=== PATIENT | female | born 1990 | race Caucasian/White ===

== ENCOUNTER 2017-04-24 07:30 | Inpatient (IN) ==
[2017-04-24] MEDS ORDERED: miSOPROStol 25 MCG TABLET PO PRN (09:19)
[2017-04-24] MEDS ORDERED: *HR* Nalbuphine 20 MG/ML AMPUL IVP PRN (09:20)
[2017-04-24] MEDS ORDERED: Naloxone 0.4 MG/ML INJ IVP PRN (09:20)
[2017-04-24] MEDS ORDERED: Famotidine 20 MG/2 ML VIAL IVP PRN (09:20)
[2017-04-24] MEDS ORDERED: Ringers Solution, Lactated 1,000 ML IVC SCH (09:30)
[2017-04-24 09:37] LABS: Amphetamine Screen,Urine Negative ng/mL (Cutoff=1000); Barbiturate Screen,Urine Negative ng/mL (Cutoff=200); Benzodiazepines Screen,Urine Negative ng/mL (Cutoff=200); Cannabinoid Screen,Urine Negative ng/mL (Cutoff = 50); Cocaine Screen,Urine Negative ng/mL (Cutoff= 300); Opiate Screen,Urine Negative ng/mL (Cutoff=300); Phencyclidine Screen,Urine Negative ng/mL (Cutoff=25)
[2017-04-24 09:40] LABS: Basophils % 0.3 %; Eosinophils # 0.1 K/mcL (0.0-0.6); Eosinophils % 0.9 %; Hematocrit 34.9 % (35.3-44.9); Hemoglobin 11.4 g/dL (11.5-15.4); Immature Granulocytes % 0.5 % (0-4); Lymphocytes # 2.4 K/mcL (0.6-4.6); Lymphocytes % 19.2 %; Mean Corpuscular HGB Conc 32.7 g/dL (31.6-35.5); Mean Corpuscular Hemoglobin 28.7 pg (28.0-33.3); Mean Corpuscular Volume 87.9 fL (83.0-100.0); Mean Platelet Volume 12.3 fL (9.4-12.4); Monocytes # 1.2 K/mcL (0.0-1.3); Monocytes % 9.8 %; Neutrophils # 8.5 K/mcL (1.6-8.9); Platelet Count 232 K/mcL (140-400); Red Blood Count 3.97 M/mcL (3.82-4.97); Segmented Neutrophils % 69.3 %
--- NOTE | 2017-04-24 09:49 | OB/GYN History & Physical ---
Date of Encounter: 04/24/17 Time of Encounter: 09:44 Assessment and Plan (1) 40 weeks gestation of Current visit: Yes Status: Acute at 40w0d her for IOL CBC, UDS LR 125 ml/hr monitoring - baseline 130 with variability and accels - category I Cervix /-2 per RN Cytotec PO Expect (2) Gestational diabetes mellitus (GDM) Current visit: Yes Status: Acute Diet controlled Check blood glucose now Qualifiers: Gestational diabetes mellitus control: diet-controlled Trimester: third trimester Qualified Code(s): O24.410 - Gestational diabetes mellitus in , diet controlled (3) Tobacco use Current visit: Yes Status: Acute History of Present Illness Chief complaint: IOL HPI: Ms. Darling is a 26 year old female at 40w0d presenting to L&D for IOL. She reports good movement and feels irregular contractions. She denies LOF, vaginal bleeding or vaginal discharge. This has been complicated by diet controlled GDM and tobacco use. She denies other symptoms. Denies fevers, chills, headaches, blurry vision, chest pain, dyspnea, abdominal pain, dysuria, or lower extremity edema. Blood type A negative - Rhogam given in office on 02/01/17 GBD negative Rubella Immune Varicella Immune All other serologies negative Past Med Surg Social Fam HX - Past Medical History Medical history: no medical history Psychiatric history: no psych history - Social History Smoking Status: Current every day smoker Packs per day: 1 Smokeless Tobacco Status: No Alcohol use: none Drug use: marijuana - Family History Grandmother Living Status: Hx Family Cancer: Yes Obstetrical History - Pregnancies : 1 Para: 0 Term: 0 : 0 Ab's: 0 Livin - History/Complications History/Complications: Diet controlled GDM, Tobacco use during Medications and Allergies No Known Home Drugs 04/24/17 [History] 3 Allergy/AdvReac Type Severity Reaction Status Date / Time No Known Allergies Allergy Verified 04/24/17 08:57 Review of System OB All systems PM: reviewed and no additional remarkable complaints except as stated Exam - Constitutional Constitutional: well developed, well nourished, no acute distress, average body habitus - HEENT HEENT: Normocephaly, Mucus Membranes Moist - Lungs Respiratory exam: CTAB - Cardiovascular Cardiovascular exam: RRR, +S1, +S2 - Abdomen Abdomen: Present: bowel sounds normal - Extremities Extremities exam: normal capillary refill, normal inspection, pedal edema (mild bilaterally), radial pulses palpable and symmetrical - Vulva Vulva: bilateral: normal - Vagina Vagina: Present: normal moisture - Cervix Dilation: 1 (per RN) Effacement: 70 Station: -2 - Uterus Uterus exam: Present: normal size, normal contour - Anus/Rectum Anus/Rectum: Present: normal perianal skin - Comments Comments: FHT baseline 130 with variability and accels - category I Results Result Diagrams: 04/24/17 08:55 Abnormal lab results WBC 12.3 K/mcL (4.3-11.1) H 04/24/17 08:55 Hgb 11.4 g/dL (11.5-15.4) L 12 08:55 Hct 34.9 % (35.3-44.9) L 04/24/17 08:55 All other labs normal. - VTE Reasons for not Prescribing Prophylaxis: Treatment not Indicated - Low risk for VTE
--- NOTE | 2017-04-24 11:28 | Anesthesia Evaluation PreOp ---
Date of Encounter: 04/24/17 Time of Encounter: 11:07 - Past History Planned Operation: vaginal del, induction Cardiac History: Denies any Significant Hx Pulmonary History: Denies Any Significant HX BURR BENCH OPERATOR History: Denies Any Significant HX Other Medical History: Denies Any Significant HX Anesthesia History: No Prior Anesthetic Complications : Yes (term) Alcohol Use: none Drug use: marijuana Medications and Allergies No Known Home Drugs 04/24/17 [History] 3 Allergy/AdvReac Type Severity Reaction Status Date / Time No Known Allergies Allergy Verified 04/24/17 08:57 Anesthesia Results - Labs 04/24/17 08:55 04/24/17 08:55 Anesthesia Exam - HEENT Pupil (Motor): Pupils equal Mallampati: II Teeth: Normal Oral Opening: Greater than 3 - BURR BENCH OPERATOR LOC: Oriented BURR BENCH OPERATOR Motor: Normal RUE, Normal LUE, Normal RLE, Normal LLE, Normal Face BURR BENCH OPERATOR Sensory: Normal: RUE, LUE, RLE, LLE, Face - Cardiac Rhythm: Regular Murmur: None - Pulmonary Breath Sounds: bilateral Clear Respiratory Effort: Symmetrical Anesthesia Assess/Plan ASA Score: 2 Modified [place] Scale for Level of Consciousness: Cooperative, oriented, and tranquil Anesthetic Plan: General, Regional Monitoring Plan: Standard Monitors
--- NOTE | 2017-04-24 13:09 | OB Labor Progress Note ---
Date of Encounter: 04/24/17
--- NOTE | 2017-04-24 14:32 | OB Labor Progress Note ---
Date of Encounter: 04/24/17 Time of Encounter: 14:30 Labor Progress Note - Subjective Subjective: Patient resting in bed. Discussed POC with patient. Patient denies any questions or concerns. - Cervix Cervix: 2.5/70/-1 - Heart Tones Heart Tones: 130 bpm moderate variability +15x15 accels no decels noted. Cat. 1 tracing - [place]: irregular - Interventions Interventions: SVE - Plan Plan: Will start Pitocin for labor augmentation.
[2017-04-24] MEDS ORDERED: Oxytocin 20 units/ LR 1000 mL 20 UNIT/1,000 ML BAG IVC SCH (14:45)
[2017-04-24] MEDS ORDERED: Epidural Premix (fent/bupiv) 110 ML EP ONE (23:32)
--- NOTE | 2017-04-25 00:10 | Anesthesia Procedures ---
Date of Encounter: 04/24/17 Time of Encounter: 23:57 Procedures: Anesthesia - Epidural/Spinal Patient ID/Chart reviewed: Yes Patient examined: Yes OB Eval: Gestational age: term OB Eval: : 1 OB Eval: Contractions: Non-stressed pattern Consent Obtained: Yes Supplemental Oxygen: None/Room Air Site Prep: Aseptic Technique, Sterile prep and drape, 0.5% Chlorhexidine/Alcohol Patient position: upright Local Anesthetic: Lidocaine 1% Amount of Local Anesthetic used: 2 Touhy Needle Gauge: 18 Touhy Needle Depth (cm): 5 Catheter Depth at Skin (cm): 9 Test Dose (1.5% Lido + Epi): Volume given (mls): 3 Test Dose Result: Negative Loading Dose: Other: 12ml from solution Loading Dose Administered: Thru Catheter Infusion Med: 0.125% Bupivacaine w/ 2 mcg/ml Fentanyl Infusion Rate (mls/hr): [address]: Tegaderm, Tape Interspace Used: L4-L5 Loss of Resistance (FESTUS): Yes (saline) Blood: No CSF: No Paresthesia: No Procedure: vss though out, FHR stable per RN's
--- NOTE | 2017-04-25 00:59 | OB Labor Progress Note ---
Date of Encounter: 04/25/17 Time of Encounter: 00:57 Labor Progress Note - Subjective Subjective: Pt resting comfortably after epidural placed. - Cervix Cervix: 3-4/80/-1 - Heart Tones Heart Tones: 135 bpm, moderate variability, +15x15 accels, no decels. Category I tracing. - [place]: 2-4 minutes - Interventions Interventions: SVE AROM for copious amount of clear fluid. - Plan Plan: Continue labor management. Increase Pitocin as needed
--- NOTE | 2017-04-25 03:03 | OB Labor Progress Note ---
Date of Encounter: 04/25/17 Time of Encounter: 03:01 Labor Progress Note - Subjective Subjective: Pt asleep in bed. Denies pain at this time, completely comfortable with epidural - Cervix Cervix: 3-4/80/-1 - Heart Tones Heart Tones: 120 bpm, moderate variability, +15x15 accels, no decels. - [place]: q2-4 - Interventions Interventions: SVE IUPC inserted - Plan Plan: Continue labor management Increase Pitocin as needed
[2017-04-25] MEDS ORDERED: Epidural Premix (fent/bupiv) 110 ML EP ONE ×3 (05:45→18:23)
--- NOTE | 2017-04-25 06:51 | Anesthesia Progress Note ---
Date of Encounter: 04/25/17 Time of Encounter: 06:29 Anesthesia Note - Note Note: 04/25/17 06:47 called to BS, c/o back pain, lower to mid back, not with contractions, dressing intact no apparent reasons noted, VSS FHR stable per RN's. bilateral level T8. no pain with checks or with contractions, bolus with 5ml 0.5% rop plain. talked with patient about expectations with epidural and pain.
[2017-04-25] MEDS ORDERED: *HR* Ropivacaine/PF 0.2% 10 ML AMPUL EP ONE (09:02)
[2017-04-25] MEDS ORDERED: *HR* FentaNYL (PF) 100 MCG/2 ML VIAL EP ONE (09:02)
--- NOTE | 2017-04-25 09:02 | Anesthesia Progress Note ---
Date of Encounter: 04/25/17 Time of Encounter: 09:01 Anesthesia Note - Note Note: 04/25/17 09:01 bolus 5 cc ropivicaine, 100 mcg fentanyl
[2017-04-25] MEDS ORDERED: *HR* Ropivacaine/PF 0.2% 10 ML AMPUL ONE (09:04)
[2017-04-25] MEDS ORDERED: *HR* FentaNYL (PF) 100 MCG/2 ML VIAL ONE (09:05)
[2017-04-25] MEDS ORDERED: Ondansetron 4 MG/2 ML VIAL IVP PRN ×5 (11:13→23:07)
--- NOTE | 2017-04-25 12:05 | OB Labor Progress Note ---
Date of Encounter: 04/25/17 Time of Encounter: 12:04 Labor Progress Note - Subjective Subjective: Pt states pain is moderately managed by epidural - Cervix Cervix: 6/80/0 - Heart Tones Heart Tones: 125/moderate/+accels/-decels - [place]: 1.5-3 - Plan Plan: Continue pitocin per policy Frequent repositioning Anticipate
--- NOTE | 2017-04-25 15:52 | OB Labor Progress Note ---
Date of Encounter: 04/25/17 Time of Encounter: 15:50 Labor Progress Note - Subjective Subjective: Pt comfortable with epidural at this time. - Cervix Cervix: 7/80/0. Pt with thick anterior lip - Heart Tones Heart Tones: 150/minimal/no accels/no decels - [place]: 1.5-2 - Plan Plan: Will stop pitocin until 1615 and then restart frequent repositioning Discussed with patient OP presentation and possible need for section
[2017-04-25] MEDS ORDERED: Gentamicin 110 MG in 0.9 % Sodium Chloride 100 ML IVPB ONE (16:53)
[2017-04-25] MEDS ORDERED: Ampicillin 2 GM in 0.9 % Sodium Chloride Mini Bag 100 ML IVPB SCH (16:53)
[2017-04-25] MEDS ORDERED: Acetaminophen 325 MG TABLET PO ONE (16:57)
--- NOTE | 2017-04-25 17:28 | OB Labor Progress Note ---
Date of Encounter: 04/25/17 Time of Encounter: 17:22 Labor Progress Note - Subjective Subjective: Pt comfortable with epidural - Vital Signs Vital Signs: temp 103 BP 124/71 - Heart Tones Heart Tones: 15/minimal/ no decel/no accels - [place]: q2-4 - Plan Plan: Now febrile, start ampicillin, gentamycin, tylenol, and 500ml fluid bolus. Updated Dr. Johnston Discussed need for pitocin if not improved.
[2017-04-25] MEDS ORDERED: Metoclopramide 10 MG/2 ML VIAL IVP ONE (18:51)
[2017-04-25] MEDS ORDERED: CeFAZolin Syringe 2,000MG/20 ML SYR IVPB ONE (18:51)
[2017-04-25] MEDS ORDERED: CeFAZolin Premix DUPLEX 2,000 MG/50 ML BAG IVPB ONE (18:59)
[2017-04-25] MEDS ORDERED: *HR* Phenylephrine 10 MG/ML VIAL ONE (19:30)
[2017-04-25] MEDS ORDERED: Chloroprocaine/PF 20 ML VIAL INFILT ONE ×2 (19:30→19:54)
[2017-04-25] MEDS ORDERED: *HR* Morphine Sulfate/PF 5 MG/10 ML AMPUL ONE (19:46)
[2017-04-25] MEDS ORDERED: Ringers Solution, Lactated 1,000 ML ONE (19:56)
[2017-04-25] MEDS ORDERED: *HR* Oxytocin 10 UNIT/ML VIAL IM ONE ×2 (19:57→19:58)
[2017-04-25] MEDS ORDERED: Ondansetron 4 MG/2 ML VIAL ONE (20:00)
--- NOTE | 2017-04-25 20:32 | OB/GYN Procedure Note ---
Section - Date of procedure: 04/25/17 Preop diagnosis: arrest of descent, category 2 FHT tracing ( tachycardia) Post-op diagnosis: same Procedure: section, primary low transverse Surgeon: Etelvina Johnston Estimated blood loss (cc): 400 [place] Clam Boat Captain: Skylar Mendieta Cytology Teacher: Hood Reynolds Anesthesia Type: Epidural section complications: none Disposition: L&D Recovery Room Specimens: Placenta, Cord blood, Cord gasses - (s) Infant A Delivery Date: 04/25/17 Infant Delivery Time: 19:33 Presentation: vertex Gender: Male Viability: Viable Pounds: 7 Ounces: 2 Gram Weight: 3.24 kg at 1 minute: 7 at 5 minutes: 9 Specimens collected: cord blood, venous cord gases, arterial cord gases Placenta: spontaneous Cord: 3 umbilical vessels - Narrative Narrative: Patient was taken to the operative suite and placed under spinal anesthetic. She was then prepped and draped in normal sterile fashion in the dorsal supine position. Timeout was then performed. Antibiotics were given at room time. SCDs are on and active. Pfannenstiel skin incision is then made and carried through to underlying layer of fascia with the Bovie. The fascia was then incised in the midline and incision extended laterally with the Mercer scissors. The fascia was tented up and dissected off the rectus muscles sharply. The rectus muscles were in the midline and the peritoneum was tented up and entered sharply with the Metzenbaum scissors. The peritoneal incision was then extended bluntly. The bladder blade was then inserted. A low transverse uterine incision was then made. The vertex was brought to the incision and the was delivered using fundal pressure. There was no nuchal cord. Cord was clamped and cut. Infant was handed to waiting nursery staff. A segment of cord was collected for cord gases. Cord blood was collected. Placenta delivered spontaneously complete and intact with a three-vessel cord. The uterus was cleared of all clots and debris using moist laparotomy sponge. The uterine incision was then closed using 0 Vicryl in a running locked fashion. A second layer of the same suture was used to obtain excellent hemostasis. The abdomen was then cleared of all clots and debris using copious irrigation. The fascial incision was then closed using 0 Vicryl in a running fashion. The skin was closed using 4-0 Vicryl in a subcuticular fashion. Steri- Strips and sterile dressing are then placed. Mother and taken to recovery in stable condition.
[2017-04-25] MEDS ORDERED: *HR* HYDROmorphone (PF) 1 MG/ML SYRINGE IVP PRN ×2 (20:59→23:07)
[2017-04-25] MEDS: *HR* HYDROmorphone (PF) 1 MG/ML SYRINGE IVP PRN ×2 (21:09→21:31)
[2017-04-25] MEDS ORDERED: Rho Immune Globulin 1,500 UNIT SYRINGE IM ONE (22:44)
[2017-04-25] MEDS ORDERED: Simethicone 80 MG TAB.CHEW PO PRN (22:44)
[2017-04-25] MEDS ORDERED: Sennosides 8.6 MG TABLET PO PRN (22:44)
[2017-04-25] MEDS ORDERED: Acetaminophen 325 MG TABLET PO PRN (22:44)
[2017-04-25] MEDS ORDERED: Oxytocin 20 units/ LR 1000 mL 20 UNIT/1,000 ML BAG IVC SCH ×2 (22:44)
[2017-04-25] MEDS ORDERED: Metoclopramide 10 MG/2 ML VIAL IVP PRN (22:44)
[2017-04-25] MEDS: *HR* OxyCODONE/APAP 5/325 TABLET PO PRN (23:21)
[2017-04-26] MEDS ORDERED: Gentamicin 80 MG in 0.9 % Sodium Chloride 100 ML IVPB SCH (00:01)
[2017-04-26] MEDS: *HR* OxyCODONE/APAP 5/325 TABLET PO PRN ×4 (05:40→21:24)
[2017-04-26] MEDS: Ibuprofen 600 MG TABLET PO PRN ×3 (06:43→21:24)
[2017-04-26 07:34] LABS: Red Cell Distribution Width 14.2 % (11.5-14.5)
[2017-04-26 07:35] LABS: Hematocrit 27.6 % (35.3-44.9); Hemoglobin 9.4 g/dL (11.5-15.4); Mean Corpuscular HGB Conc 34.1 g/dL (31.6-35.5); Mean Corpuscular Hemoglobin 29.7 pg (28.0-33.3); Mean Corpuscular Volume 87.1 fL (83.0-100.0); Mean Platelet Volume 11.9 fL (9.4-12.4); Platelet Count 175 K/mcL (140-400); Red Blood Count 3.17 M/mcL (3.82-4.97)
[2017-04-26] MEDS ORDERED: Ringers Solution, Lactated 1,000 ML ONE (09:25)
[2017-04-26] MEDS: cephALEXin 500 MG CAPSULE PO SCH ×3 (09:30→21:23)
[2017-04-26] MEDS: Prenatal Vit/FA 1 EACH TABLET PO SCH (09:30)
[2017-04-26] MEDS: Azithromycin 250 MG TABLET PO SCH (09:31)
[2017-04-26 09:48] LABS: Lymphocytes # 1.2 K/mcL (0.6-4.6); Monocytes # 2.4 K/mcL (0.0-1.3); Neutrophils # 26.1 K/mcL (1.6-8.9); Platelet Estimate Normal (Normal)
--- NOTE | 2017-04-26 10:14 | OB/GYN Progress Note ---
Date of Encounter: 04/26/17 Time of Encounter: 10:12 - Assessment and Plan (1) Status post Current Visit: Yes Status: Acute Patient is post-op day #1 s/p Plan is to ambulate the patient, anticipate voiding of bowel and bladder, continue to control pain and monitor patient progress Subjective - Subjective Principal diagnosis: s/p Interval history: Patient is a 26F presented on 04/24 to L&D for IOL. Patient underwent c- section on 04/25 for arrest of descent and category 2 FHT. Patient delivered a viable male without complications. Patient states she is tolerating PO. She has not ambulated yet. Mathis removed today. No flatulence. Vaginal bleeding is improving. Patient reports a good mood. Patient reports: appetite normal, pain well controlled, no voiding normally, no dizzy ambulation, no appetite poor, no pain poorly controlled, no ambulating normally, no nauseated : doing well Objective - Vital Signs Latest vital signs: Vital Signs Temp Pulse Pulse Resp BP Pulse Ox 04/26/17 07:24 98.6 F 91 14 117/74 94 04/26/17 05:05 98.3 F 96 96 20 119/72 97 04/26/17 01:40 98.9 F 110 110 16 120/74 96 04/26/17 00:30 99.3 F 110 20 114/72 95 04/25/17 23:43 98.6 F 114 14 111/61 95 04/25/17 23:40 98.6 F 114 114 14 111/61 95 04/25/17 23:07 98.6 F 116 116 20 117/75 95 04/25/17 22:30 98.7 F 115 14 122/69 94 04/25/17 21:38 98.5 F 130 40 04/25/17 20:58 98.0 F 160 40 Intake and Output 04/25/17 04/26/17 04/26/17 23:59 07:59 15:59 Intake Total 540 / 540 Output Total 800 / 800 300 / 300 Balance -800 / -800 240 / 240 Intake: Oral 540 / 540 Output: Catheter 800 / 800 300 / 300 Other: Weight 62.1 kg - Exam Lungs: bilateral: normal Chest: Normal S1, Normal S2 Extremities: Present: normal. Absent: tenderness, edema Abdomen: Present: normal appearance, soft, tenderness Uterus: Present: normal, firm - Labs Labs: Laboratory Results - last 24 hr 04/25/17 04/26/17 20:30 07:11 WBC 29.7 H D RBC 3.17 L Hgb 9.4 L D Hct 27.6 L MCV 87.1 MCH 29.7 MCHC 34.1 RDW 14.2 Plt Count 175 MPV 11.9 Seg Neutrophils % 78.0 Band Neutrophils % 10.0 H Lymphocytes % 4.0 Monocytes % 8.0 Neutrophils # 26.1 H Lymphocytes # 1.2 Monocytes # 2.4 H Platelet Estimate Normal Screen POSITIVE Baby's Blood Type O RH POSITIVE Mother's Blood Type A RH NEGATIVE Rhogam Indicated YES
[2017-04-27] MEDS: *HR* OxyCODONE/APAP 5/325 TABLET PO PRN (06:55)
[2017-04-27] MEDS: Ibuprofen 600 MG TABLET PO PRN (06:55)
[2017-04-27] MEDS: Prenatal Vit/FA 1 EACH TABLET PO SCH (08:32)
[2017-04-27] MEDS: Azithromycin 250 MG TABLET PO SCH (08:32)
[2017-04-27] MEDS: cephALEXin 500 MG CAPSULE PO SCH (08:33)
--- NOTE | 2017-04-27 09:01 | Discharge Summary ---
Date of Encounter: 04/27/17 Time of Encounter: 08:55 - Discharge Diagnosis (1) Status post Priority: Primary Status: Acute Comments: Continue routine /postop care. Discharge to guest status today. (2) anemia Priority: Secondary Status: Acute Comments: Continue iron as directed. - Discharge Medications Prescriptions: OxyCODONE/APAP 5/325 [Percocet 5/325 MG] 1 each PO Q4HR PRN #30 tablet PRN Reason: Moderate pain 4-6 Ibuprofen [Motrin] 600 mg PO Q6HR PRN #60 tablet PRN Reason: Cramping Home Medications: Docusate [Colace] 100 mg PO BID capsule 04/27/17 [Rx] Ferrous Sulfate 325 mg PO DAILY #0 tablet 04/27/17 [Rx] Ibuprofen [Motrin] 600 mg PO Q6HR PRN #60 tablet 04/27/17 [Rx] OxyCODONE/APAP 5/325 [Percocet 5/325 MG] 1 each PO Q4HR PRN #30 tablet 04/27/17 [Rx] Vit/FA 1 each PO DAILY tablet 04/27/17 [Rx] Simethicone [Gas-X] 80 mg PO TID PRN tab.chew 04/27/17 [Rx] Allergies/Adverse Reactions: 3 Allergy/AdvReac Type Severity Reaction Status Date / Time No Known Allergies Allergy Verified 04/24/17 08:57 Data Procedures and tests throughout hospitalization: Laboratory Tests 04/24/17 04/24/17 04/24/17 08:55 08:55 08:56 WBC 12.3 H RBC 3.97 Hgb 11.4 L Hct 34.9 L MCV 87.9 MCH 28.7 MCHC 32.7 RDW 14.0 Plt Count 232 MPV 12.3 Immature Gran % 0.5 Seg Neutrophils % 69.3 Band Neutrophils % Lymphocytes % 19.2 Monocytes % 9.8 Eosinophils % 0.9 Basophils % 0.3 Neutrophils # 8.5 Lymphocytes # 2.4 Monocytes # 1.2 Eosinophils # 0.1 Basophils # 0.0 Platelet Estimate Volume Blood Glucose 73 Urine Opiates Screen Negative Ur Barbiturates Screen Negative Ur Phencyclidine Scrn Negative Ur Amphetamines Screen Negative U Benzodiazepines Scrn Negative Urine Cocaine Screen Negative U Marijuana (THC) Screen Negative Screen Baby's Blood Type Mother's Blood Type Rhogam Indicated Rhogam Req for Mother 04/25/17 04/25/17 04/26/17 20:30 20:30 07:11 WBC 29.7 H D RBC 3.17 L Hgb 9.4 L D Hct 27.6 L MCV 87.1 MCH 29.7 MCHC 34.1 RDW 14.2 Plt Count 175 MPV 11.9 Immature Gran % Seg Neutrophils % 78.0 Band Neutrophils % 10.0 H Lymphocytes % 4.0 Monocytes % 8.0 Eosinophils % Basophils % Neutrophils # 26.1 H Lymphocytes # 1.2 Monocytes # 2.4 H Eosinophils # Basophils # Platelet Estimate Normal Volume Blood 20 H Glucose Urine Opiates Screen Ur Barbiturates Screen Ur Phencyclidine Scrn Ur Amphetamines Screen U Benzodiazepines Scrn Urine Cocaine Screen U Marijuana (THC) Screen Screen POSITIVE Baby's Blood Type O RH POSITIVE Mother's Blood Type A RH NEGATIVE Rhogam Indicated YES Rhogam Req for Mother 2 Labs on day of discharge: Labs from last 24 hours 04/26/17 04/25/17 04/25/17 07:11 20:30 20:30 Seg Neutrophils % 78.0 Band Neutrophils % 10.0 H Lymphocytes % 4.0 Monocytes % 8.0 Neutrophils # 26.1 H Lymphocytes # 1.2 Monocytes # 2.4 H Platelet Estimate Normal Volume Blood 20 H Screen POSITIVE Rhogam Req for Mother 2 Preliminary micro results at discharge 04/25/17 21:44 Placental Culture - Preliminary Placenta 04/25/17 21:44 Placental Culture - Preliminary Placenta Date of admission: 04/24/17 08:09 Primary care physician: Baltazar Rogers Consults: 04/25/17 22:44 Consult to Repairer And Checker (W&C) [CONS] Routine Reason For Exam: Reason for SW Consult: transportation Discharging clinician: Sydni See Anticipated date of discharge: 04/27/17 - Patient Status Disposition: Home, Self-Care Condition: Good Functional capacity at discharge: independent ambulation - Discharge Instructions Instructions: Rho(D) Immune Globulin (Injection) Follow Up With: Baltazar Rogers DO [Primary Care Provider] - Etelvina Johnston DO [Partnered Physician] - - Diet and Activity Activity: increase activity as tolerated Diet: regular diet Hospital Course Reason for admission: induction of labor Delivery: section Episiotomy: none Laceration: none Other procedures: none complications: none Discharge diagnosis: IUP at term delivered [place] baby: male Hospital course: [facility] report reviewed by Consuelo See CNM Time Attestation: Total time spent providing and/or coordinating discharge services: Time Spent: Less than 30 minutes - VTE Reasons for not Prescribing Prophylaxis: Treatment not Indicated - Low risk for VTE Documentation of Mechanical Device: Venous foot pump, device Exam - Constitutional Vitals: Temp Pulse Resp BP Pulse Ox 97.8 F 89 16 122/82 99 04/26/17 19:00 04/26/17 19:00 04/26/17 19:00 04/26/17 19:00 04/26/17 19:00 General appearance IM: A&O X 3, pleasant, no acute distress - Respiratory Respiratory exam: Present: CTAB - Cardiovascular Cardiovascular exam IM: Present: RRR, +S1, +S2 - GI/Abdominal GI/Abdominal exam IM: normal bowel sounds, soft Incision: normal, intact Additional comments: steri strips intact - Rectal Rectal exam: deferred - Uterine Tone: Firm Uterus Position: 1 Finger Below Umbilicus, Midline - Extremities Exam Extremities exam IM: Present: full ROM, normal capillary refill, normal inspection, warm - Neurological Exam Neurological exam: alert, oriented X3, strengths equal and symetr throughout
[2017-04-27 09:16] VITALS: BP 134/87
== END 2017-04-27 11:28 | disposition home or self-care (01) | DRG 540 ==
LOC: 1NENULAB 08:09 → 1NENUOBS 04-25 22:47
PROVIDERS: ADMIT Obstetrics & Gynecology; ATTEND Obstetrics & Gynecology

== ENCOUNTER 2018-04-30 10:20 | Inpatient (IN) ==
[2018-04-30] MEDS ORDERED: Famotidine 20 MG/2 ML VIAL IVP ONE (11:54)
[2018-04-30] MEDS ORDERED: CeFAZolin Premix DUPLEX 2,000 MG/50 ML BAG IVPB ONE (11:54)
[2018-04-30] MEDS ORDERED: Metoclopramide 10 MG/2 ML VIAL IVP ONE (11:54)
[2018-04-30] MEDS ORDERED: Oxytocin 20 units/ LR 1000 mL 20 UNIT/1,000 ML BAG IVC SCH ×2 (12:00→21:46)
[2018-04-30] MEDS ORDERED: Ringers Solution, Lactated 1,000 ML IVC SCH ×2 (12:00→21:46)
[2018-04-30 13:18] LABS: Basophils # 0.1 K/mcL (0.0-0.2); Basophils % 0.4 %; Eosinophils # 0.1 K/mcL (0.0-0.6); Eosinophils % 0.8 %; Hematocrit 39.6 % (35.3-44.9); Hemoglobin 13.2 g/dL (11.5-15.4); Immature Granulocytes % 0.5 % (0-4); Lymphocytes # 2.4 K/mcL (0.6-4.6); Lymphocytes % 15.8 %; Mean Corpuscular HGB Conc 33.3 g/dL (31.6-35.5); Mean Corpuscular Hemoglobin 29.9 pg (28.0-33.3); Mean Corpuscular Volume 89.8 fL (83.0-100.0); Mean Platelet Volume 11.4 fL (9.4-12.4); Monocytes # 1.1 K/mcL (0.0-1.3); Monocytes % 6.8 %; Neutrophils # 11.6 K/mcL (1.6-8.9); Platelet Count 256 K/mcL (140-400); Red Blood Count 4.41 M/mcL (3.82-4.97); Red Cell Distribution Width 13.9 % (11.5-14.5); Segmented Neutrophils % 75.7 %
--- NOTE | 2018-04-30 13:28 | Anesthesia Evaluation PreOp ---
Date of Encounter: 04/30/18 Time of Encounter: 13:27 - Past History Planned Operation: csection Cardiac History: Denies any Significant Hx Pulmonary History: Smoker (1 ppd) EVENTS TRAFFIC CONTROLLER History: Denies Any Significant HX Other Medical History: Denies Any Significant HX Anesthesia History: No Prior Anesthetic Complications, Past Anesthesia (ovarian cyst) : Yes (39 weeks, ) Alcohol Use: none Drug use: marijuana Medications and Allergies Docusate [Colace] 100 mg PO BID capsule 04/27/17 [Rx] Ferrous Sulfate 325 mg PO DAILY #0 tablet 04/27/17 [Rx] Ibuprofen [Motrin] 600 mg PO Q6HR PRN #60 tablet 04/27/17 [Rx] OxyCODONE/APAP 5/325 [Percocet 5/325 MG] 1 each PO Q4HR PRN #30 tablet 04/27/17 [Rx] Vit/FA 1 each PO DAILY tablet 04/27/17 [Rx] Simethicone [Gas-X] 80 mg PO TID PRN tab.chew 04/27/17 [Rx] Allergy/AdvReac Type Severity Reaction Status Date / Time No Known Allergies Allergy Verified 04/24/17 08:57 - Meds/Allergy Pre-op Review Medications Reviewed: Yes Allergies Reviewed: Yes Beta Blockers on Current Med List: No Anesthesia Results - Labs 04/30/18 12:30 Anesthesia Exam O2 Sat Height 1.57 m Weight 56.8 kg Vital Signs Temp Pulse Resp BP 98.2 F 90 18 124/75 04/30/18 11:03 04/30/18 11:03 04/30/18 11:03 04/30/18 11:03 Height: 62 Weight: 56 NPO (# of Hours): coffee with cream at 0830 - HEENT Pupil (Motor): Pupils equal Mallampati: II Teeth: Normal Oral Opening: Greater than 3 - EVENTS TRAFFIC CONTROLLER LOC: Oriented EVENTS TRAFFIC CONTROLLER Motor: Normal RUE, Normal LUE, Normal RLE, Normal LLE, Normal Face EVENTS TRAFFIC CONTROLLER Sensory: Normal: RUE, LUE, RLE, LLE, Face - Cardiac Rhythm: Regular Murmur: None JVD: No Carotid Bruit: No - Pulmonary Breath Sounds: bilateral Clear Respiratory Effort: Symmetrical Anesthesia Assess/Plan ASA Score: 2 Level of consciousness: Cooperative Anesthetic Plan: Spinal Monitoring Plan: Standard Monitors Recovery Plan: PACU
[2018-04-30 15:06] LABS: Amphetamine Screen,Urine Negative ng/mL (Cutoff=1000); Barbiturate Screen,Urine Negative ng/mL (Cutoff=200); Benzodiazepines Screen,Urine Negative ng/mL (Cutoff=200); Cannabinoid Screen,Urine Negative ng/mL (Cutoff = 50); Cocaine Screen,Urine Negative ng/mL (Cutoff= 300); Opiate Screen,Urine Negative ng/mL (Cutoff=300); Phencyclidine Screen,Urine Negative ng/mL (Cutoff=25)
--- NOTE | 2018-04-30 16:49 | OB/GYN History & Physical ---
Date of Encounter: 04/30/18 Time of Encounter: 16:47 Assessment and Plan (1) 39 weeks gestation of Current visit: Yes Status: Acute Pt here for repeat . On arrival she reports irregular uc's, no vb or lof. History of Present Illness Chief complaint: Here for rpt HPI: Ms. Darling is a 27 year old female female presents for rpt c-sec and bps. She reports irregular uc's, no vb or lof. Past Med Surg Social Fam HX - Past Medical History Source: patient, old records reviewed Medical history: no medical history Additional medical history: CYST OVARY Psychiatric history: no psych history - Past Surgical History Surgical History: Additional surgical history: cyst removal from ovaries - Social History Smoking Status: Current every day smoker Packs per day: 1 Smokeless Tobacco Status: No Alcohol use: none Drug use: marijuana - Family History Grandmother Living Status: Hx Family Cancer: Yes Obstetrical History - Pregnancies : 2 Medications and Allergies Docusate [Colace] 100 mg PO BID capsule 04/27/17 [Rx] Ferrous Sulfate 325 mg PO DAILY #0 tablet 04/27/17 [Rx] Ibuprofen [Motrin] 600 mg PO Q6HR PRN #60 tablet 04/27/17 [Rx] OxyCODONE/APAP 5/325 [Percocet 5/325 MG] 1 each PO Q4HR PRN #30 tablet 04/27/17 [Rx] Vit/FA 1 each PO DAILY tablet 04/27/17 [Rx] Simethicone [Gas-X] 80 mg PO TID PRN tab.chew 04/27/17 [Rx] Allergy/AdvReac Type Severity Reaction Status Date / Time No Known Allergies Allergy Verified 04/24/17 08:57 Exam - Vital Signs Vital signs: Initial Vital Signs Temp Pulse Resp BP 98.2 F 90 18 124/75 04/30/18 11:03 04/30/18 11:03 04/30/18 11:03 04/30/18 11:03 - Constitutional Constitutional: well developed - HEENT HEENT: EOMI, PERRL - Neck Neck exam: full ROM - Lungs Respiratory exam: CTAB - Cardiovascular Cardiovascular exam: RRR - Abdomen Abdomen: Present: gravid - Extremities Extremities exam: full ROM Deep Tendon Reflex Grade: 2+ Normal Results Result Diagrams: 12/18/18 12:30 Abnormal lab results WBC 15.3 K/mcL (4.3-11.1) H 04/30/18 12:30 Neutrophils # 11.6 K/mcL (1.6-8.9) H 04/30/18 12:30 All other labs normal. - VTE Reasons for not Prescribing Prophylaxis: Treatment not Indicated - Low risk for VTE
[2018-04-30] MEDS ORDERED: *HR* Morphine Sulfate/PF 10 MG/10 ML AMPUL ONE (16:52)
[2018-04-30] MEDS ORDERED: *HR* FentaNYL (PF) 100 MCG/2 ML VIAL ONE (16:52)
[2018-04-30] MEDS ORDERED: Bupivacaine/PF 0.75% in Dex 2 ML AMPUL INFILT ONE (16:57)
[2018-04-30] MEDS ORDERED: *HR* Phenylephrine 10 MG/ML VIAL ONE (18:10)
[2018-04-30] MEDS ORDERED: Lidocaine -MPF 1% 5 ML AMPUL ONE (18:10)
[2018-04-30] MEDS ORDERED: EPHEDrine 50 MG/ML VIAL ONE (18:12)
[2018-04-30] MEDS ORDERED: *HR* Oxytocin 10 UNIT/ML VIAL IM ONE (18:27)
[2018-04-30] MEDS ORDERED: Ringers Solution, Lactated 1,000 ML ONE (18:27)
[2018-04-30] MEDS ORDERED: *HR* OxyCODONE Immed Rel 5 MG TABLET PO PRN (18:48)
[2018-04-30] MEDS ORDERED: *HR* Promethazine 25 MG/ML VIAL IVP PRN (18:48)
--- NOTE | 2018-04-30 19:25 | OB/GYN Procedure Note ---
Section - Date of procedure: 04/30/18 Preop diagnosis: desires repeat , desires sterilization Post-op diagnosis: same Procedure: section, repeat low transverse, bilateral tubal ligation Surgeon: Rick Simon Blood Loss: 500 Was there an bilingual legal assistant present: No Anesthesiologist: Marielena Meyers Career Development Coordinator: Carlos Chaudhary Anesthesia Type: Spinal Disposition: PACU Specimens: Placenta - (s) A Delivery Date: 04/30/18 Delivery Time: 18:32 Presentation: vertex Gender: Female Gram Weight: 2.71 kg at 1 minute: 8 at 5 minutes: 9 Specimens collected: cord blood Placenta: spontaneous Cord: 3 umbilical vessels - Narrative Narrative: Patient is 27-year-old 2 now para 2 female who presented for repeat section and bilateral partial tubal coagulation. She was aware operative risks and signed appropriate consent. Description procedure: Patient was taken operating room where spinal anesthesia was messaged. She was prepped draped in usual sterile fashion bladder was drained of clear urine. Scalp was used to make a Pfannenstiel skin incision over patient's previous incision. This was sharply taken on rectus fascia which was incised midline fascial incision was extended bilaterally. Plan is developed and rectus muscle rectus fascia distally rectus muscles were run midline peritoneum was entered sharply. Bladder blade was placed and bladder flap was developed on lower uterine segment. Scalpel was used to make a low transverse uterine incision uterus was turned bluntly and membranes were ruptured clear fluid. Infant was delivered from vertex presentation. Oropharynx and nasal pharynx were suctioned of clear fluid cord was clamped and cut and was handed nurse personnel who were in attendance. Placenta was delivered manually without difficulty and uterine cavity was massaged free of all residual tissue. Uterus closed the Vicryl running lock stitch. Second centimeters placed with the first obtain hemostasis. Distal 4-5 similar of each fallopian tube was double ligated transected and removed without difficulty. Proximal into the fallopian tubes were hemostatic. Again irrigation was performed hemostasis was ensured. Fascia was closed 0 Vicryl running manner. Closed the fascia again irrigations for hemostasis was assured. Skin edges reapproximated with 4-0 Vicryl. All sponge and instruments counts are correct patient was taken recovery in good condition.
[2018-04-30] MEDS ORDERED: Rho Immune Globulin 1,500 UNIT SYRINGE IM ONE (21:46)
[2018-04-30] MEDS ORDERED: Ondansetron 4 MG/2 ML VIAL IVP PRN (21:46)
[2018-04-30] MEDS ORDERED: Sennosides 8.6 MG TABLET PO PRN (21:46)
[2018-04-30] MEDS ORDERED: Metoclopramide 10 MG/2 ML VIAL IVP PRN (21:46)
[2018-04-30] MEDS ORDERED: Simethicone 80 MG TAB.CHEW PO PRN (21:46)
[2018-05-01] MEDS: *HR* OxyCODONE/APAP 5/325 TABLET PO PRN ×4 (01:24→20:30)
--- NOTE | 2018-05-01 07:06 | Anesthesia Evaluation Post Op ---
Date of Encounter: 05/01/18 Time of Encounter: 07:03 - Vital Signs Vital Signs: Vital Signs/O2 Sat, Most Current Temp Pulse Resp BP Pulse Ox 98.4 F 94 14 102/63 97 05/01/18 04:06 05/01/18 04:06 05/01/18 04:06 05/01/18 04:06 05/01/18 04:06 - Lungs Lungs: Clear Ascult./Percussion - Airway Airway: Non-obstructed - Cardiovascular Regular Rate - Mental Status Mental Status: Alert & Oriented, Answers Appropriately - Pain Pain Scale: 7 (7 when fundal massage is done) - Nausea Vomiting Nausea Vomiting: Not Present - Hydration Hydration: Tolerates oral liquids, Mathis catheter - Discharge PostOp Status: Transfer Patient to floor
[2018-05-01] MEDS: Ibuprofen 600 MG TABLET PO PRN ×2 (07:09→20:29)
[2018-05-01] MEDS: Prenatal Vit/FA 1 EACH TABLET PO SCH (07:51)
[2018-05-01 08:28] LABS: Basophils # 0.1 K/mcL (0.0-0.2); Basophils % 0.4 %; Eosinophils # 0.1 K/mcL (0.0-0.6); Eosinophils % 0.6 %; Hematocrit 30.1 % (35.3-44.9); Immature Granulocytes % 0.4 % (0-4); Lymphocytes # 1.5 K/mcL (0.6-4.6); Lymphocytes % 10.3 %; Mean Corpuscular HGB Conc 33.6 g/dL (31.6-35.5); Mean Corpuscular Volume 89.3 fL (83.0-100.0); Mean Platelet Volume 11.3 fL (9.4-12.4); Monocytes # 1.1 K/mcL (0.0-1.3); Monocytes % 7.8 %; Neutrophils # 11.4 K/mcL (1.6-8.9); Platelet Count 225 K/mcL (140-400); Red Blood Count 3.37 M/mcL (3.82-4.97); Red Cell Distribution Width 13.9 % (11.5-14.5); Segmented Neutrophils % 80.5 %
[2018-05-01 08:41] LABS: Hemoglobin 10.1 g/dL (11.5-15.4)
--- NOTE | 2018-05-01 08:59 | OB/GYN Progress Note ---
Date of Encounter: 05/01/18 Time of Encounter: 08:57 - Assessment and Plan (1) Status post Current Visit: No Status: Acute Pt meeting POD#1 milestones. Await spontaneous void and flatus. Pt to ambulate in hallway today. She desires discharge home POD#2 if doing well. Subjective - Subjective Interval history: Pt reports she has not yet been up to urinate and is not yet passing flatus. No complaints this am. Pain well controlled with Motrin. Patient reports: appetite normal, pain well controlled, ambulating normally : doing well Objective - Vital Signs Latest vital signs: Vital Signs Temp Pulse Resp BP Pulse Ox 05/01/18 07:20 98.1 F 81 16 97/62 05/01/18 04:06 98.4 F 94 14 102/63 97 05/01/18 01:15 98.7 F 90 16 107/67 97 05/01/18 00:15 98.2 F 94 14 108/67 99 04/30/18 22:15 97.4 F L 96 16 117/70 99 04/30/18 21:46 97.4 F L 86 16 108/76 99 04/30/18 21:30 97.3 F L 86 14 115/76 99 04/30/18 11:03 98.2 F 90 18 124/75 Intake and Output 04/30/18 05/01/18 05/01/18 23:59 07:59 15:59 Output Total 225 / 225 200 / 200 Balance -225 / -225 -200 / -200 Output: Catheter 225 / 225 200 / 200 Other: Stool Characteristics Normal for Patient Weight 53.3 kg - Exam Lungs: bilateral: normal Chest: Normal S1, Normal S2 Extremities: Present: normal Abdomen: Present: soft Incision: Present: dressed (dressing with small amount old drainage. ) Uterus: Present: firm Fundal Height: 1 (U/1) - Labs Labs: Laboratory Results - last 24 hr 04/30/18 04/30/18 04/30/18 12:30 13:02 20:20 WBC 15.3 H RBC 4.41 Hgb 13.2 Hct 39.6 MCV 89.8 MCH 29.9 MCHC 33.3 RDW 13.9 Plt Count 256 MPV 11.4 Immature Gran % 0.5 Seg Neutrophils % 75.7 Lymphocytes % 15.8 Monocytes % 6.8 Eosinophils % 0.8 Basophils % 0.4 Neutrophils # 11.6 H Lymphocytes # 2.4 Monocytes # 1.1 Eosinophils # 0.1 Basophils # 0.1 Urine Opiates Screen Negative Ur Barbiturates Screen Negative Ur Phencyclidine Scrn Negative Ur Amphetamines Screen Negative U Benzodiazepines Scrn Negative Urine Cocaine Screen Negative U Marijuana (THC) Screen Negative Ur Drug Screen Interp See Below Baby's Blood Type A RH NEGATIVE Mother's Blood Type A RH NEGATIVE Rhogam Indicated NO 05/01/18 07:48 WBC 14.1 H RBC 3.37 L Hgb 10.1 L D Hct 30.1 L MCV 89.3 MCH 30.0 MCHC 33.6 RDW 13.9 Plt Count 225 MPV 11.3 Immature Gran % 0.4 Seg Neutrophils % 80.5 Lymphocytes % 10.3 Monocytes % 7.8 Eosinophils % 0.6 Basophils % 0.4 Neutrophils # 11.4 H Lymphocytes # 1.5 Monocytes # 1.1 Eosinophils # 0.1 Basophils # 0.1 Urine Opiates Screen Ur Barbiturates Screen Ur Phencyclidine Scrn Ur Amphetamines Screen U Benzodiazepines Scrn Urine Cocaine Screen U Marijuana (THC) Screen Ur Drug Screen Interp Baby's Blood Type Mother's Blood Type Rhogam Indicated
[2018-05-01] MEDS: Nicotine 14 MG PATCH.TD24 TD SCH (09:43)
[2018-05-02] MEDS: *HR* OxyCODONE/APAP 5/325 TABLET PO PRN ×2 (01:55→07:51)
[2018-05-02] MEDS: Prenatal Vit/FA 1 EACH TABLET PO SCH (07:51)
[2018-05-02] MEDS: Ibuprofen 600 MG TABLET PO PRN (07:51)
[2018-05-02] MEDS: Nicotine 14 MG PATCH.TD24 TD SCH (07:52)
[2018-05-02 09:33] VITALS: BP 121/81
--- NOTE | 2018-05-02 10:21 | Discharge Summary ---
Date of Encounter: 05/02/18 Time of Encounter: 10:19 - Discharge Diagnosis (1) Status post Priority: Primary Status: Acute Comments: S/P primary section day 2 Pain well controlled Lochia light and without clots VSS Tolerating regular diet; passing flatus Voiding without difficulty Bottle feeding Discharge home toeday POC per consult with Dr Celis (2) anemia Priority: Secondary Status: Acute - Discharge Medications Home Medications: RX: Docusate [Colace] 100 mg PO BID capsule 04/27/17 [Rx] RX: Ferrous Sulfate 325 mg PO DAILY #0 tablet 04/27/17 [Rx] RX: Ibuprofen [Motrin] 600 mg PO Q6HR PRN #60 tablet 04/27/17 [Rx] RX: OxyCODONE/APAP 5/325 [Percocet 5/325 MG] 1 each PO Q4HR PRN #30 tablet 04/27/17 [Rx] RX: Vit/FA 1 each PO DAILY tablet 04/27/17 [Rx] RX: Simethicone [Gas-X] 80 mg PO TID PRN tab.chew 04/27/17 [Rx] Allergies/Adverse Reactions: Allergy/AdvReac Type Severity Reaction Status Date / Time No Known Allergies Allergy Verified 04/24/17 08:57 Data Procedures and tests throughout hospitalization: Laboratory Tests 04/30/18 04/30/18 04/30/18 12:30 13:02 20:20 WBC 15.3 H RBC 4.41 Hgb 13.2 Hct 39.6 MCV 89.8 MCH 29.9 MCHC 33.3 RDW 13.9 Plt Count 256 MPV 11.4 Immature Gran % 0.5 Seg Neutrophils % 75.7 Lymphocytes % 15.8 Monocytes % 6.8 Eosinophils % 0.8 Basophils % 0.4 Neutrophils # 11.6 H Lymphocytes # 2.4 Monocytes # 1.1 Eosinophils # 0.1 Basophils # 0.1 Urine Opiates Screen Negative Ur Barbiturates Screen Negative Ur Phencyclidine Scrn Negative Ur Amphetamines Screen Negative U Benzodiazepines Scrn Negative Urine Cocaine Screen Negative U Marijuana (THC) Screen Negative Ur Drug Screen Interp See Below Baby's Blood Type A RH NEGATIVE Mother's Blood Type A RH NEGATIVE Rhogam Indicated NO 05/01/18 07:48 WBC 14.1 H RBC 3.37 L Hgb 10.1 L D Hct 30.1 L MCV 89.3 MCH 30.0 MCHC 33.6 RDW 13.9 Plt Count 225 MPV 11.3 Immature Gran % 0.4 Seg Neutrophils % 80.5 Lymphocytes % 10.3 Monocytes % 7.8 Eosinophils % 0.6 Basophils % 0.4 Neutrophils # 11.4 H Lymphocytes # 1.5 Monocytes # 1.1 Eosinophils # 0.1 Basophils # 0.1 Urine Opiates Screen Ur Barbiturates Screen Ur Phencyclidine Scrn Ur Amphetamines Screen U Benzodiazepines Scrn Urine Cocaine Screen U Marijuana (THC) Screen Ur Drug Screen Interp Baby's Blood Type Mother's Blood Type Rhogam Indicated Date of admission: 04/30/18 10:20 Primary care physician: PCP NONE Discharging clinician: Becky Joshi Anticipated date of discharge: 05/02/18 - Patient Status Disposition: Home, Self-Care Condition: Good Functional capacity at discharge: independent ambulation Overall status at discharge: patient is progressing back to baseline - Discharge Instructions Follow Up With: NONE,PCP [Primary Care Provider] - Rick Kennedy MD [Partnered Physician] - - Diet and Activity Activity: increase activity as tolerated Diet: regular diet Hospital Course Time Attestation: Total time spent providing and/or coordinating discharge services: - VTE Reasons for not Prescribing Prophylaxis: Treatment not Indicated - Low risk for VTE Documentation of Mechanical Device: Intermittent pneumatic compression device Exam - Constitutional Vitals: Temp Pulse Resp BP Pulse Ox 97.5 F L 83 16 121/81 98 05/02/18 07:30 05/02/18 07:30 05/02/18 07:30 05/02/18 07:30 05/01/18 20:26
== END 2018-05-02 12:05 | disposition home or self-care (01) | DRG 540 ==
LOC: 1NENULAB 10:20 → 1NENUOBS 21:14
PROVIDERS: ADMIT Obstetrics & Gynecology; ATTEND Obstetrics & Gynecology